=== PATIENT | male | born 1980 | race Hispanic/Latino ===

== ENCOUNTER 2018-12-27 10:31 | Inpatient (IN) | payer SELFPAY ==
[~2018-12-27] VITALS: Ht 177.8 cm; Wt 95.1 kg
[2018-12-27 11:46] LABS: BASOPHILS % (AUTO) 0.9 % (0.0-5.0); EOSINOPHILS % (AUTO) 1.8 % (0.0-8.0); HEMATOCRIT 39.1 % (42-54); LYMPHOCYTES % (AUTO) 17.2 % (21.0-51.0); MEAN CORPUSCULAR HEMOGLOBIN 29.4 pg (27.0-33.0); MEAN CORPUSCULAR HGB CONC 33.2 g/dL (32.0-36.0); MEAN CORPUSCULAR VOLUME 88.6 fL (79-99); MONOCYTES % (AUTO) 7.8 % (3.0-13.0); NEUTROPHILS % (AUTO) 72.3 % (40.0-77.0); PLATELET COUNT (AUTO) 218 K/uL (130-400); RED BLOOD CELL COUNT(AUTO) 4.41 MIL/uL (4.50-6.20); RED CELL DISTRIBUTION WIDTH 12.8 % (11.0-15.5); WHITE BLOOD COUNT (AUTO) 10.6 K/uL (4.8-10.8)
[2018-12-27 11:56] LABS: CARBON DIOXIDE 26 mmol/L (21-32); CHLORIDE 108 mmol/L (101-111); GLOMERULAR FILTR. RATE CALC 88 mL/min (>60); GLUCOSE,RANDOM 133 mg/dL (70-105); POTASSIUM 3.8 mmol/L (3.5-5.1); SODIUM SERUM 144 mmol/L (136-145); UREA NITROGEN, BLOOD 19 mg/dL (7-18)
[2018-12-27 11:57] LABS: INR 0.91 (0.85-1.15); PARTIAL THROMBOPLASTIN TIME 27.9 SEC (26.3-35.5); PROTHROMBIN TIME 9.6 SEC (9.6-11.6)
[2018-12-27] MEDS ORDERED: SODIUM CHLORIDE 0.9% 1000ML 1,000 ML IV ONE (12:00)
[2018-12-27] MEDS ORDERED: ZOSYN 3.375GM+NS 50ML 50 ML IV ONE ×2 (12:01→22:55)
[2018-12-27] MEDS ORDERED: VANCOMYCIN 1GM+NS 250ML 250 ML IV ONE ×2 (12:01→22:00)
[2018-12-27 12:07] LABS: ALANINE AMINOTRANSFERASE 49 U/L (12-78); ALBUMIN 3.3 g/dL (3.5-5.0); ASPARTATE AMINOTRANSFERASE 26 U/L (10-37); BILIRUBIN,TOTAL 0.3 mg/dL (0.2-1.0); CREATINE KINASE, TOTAL 153 U/L (21-232); MYOGLOBIN 70 ng/mL (10-92); TOTAL PROTEIN, SERUM 7.9 g/dL (6.0-8.3); TROPONIN I < 0.04 ng/mL (0.00-0.06)
[2018-12-27] MEDS ORDERED: ONDANSETRON HCL 4 MG/2 ML VIAL IV PRN (14:30)
[2018-12-27] MEDS ORDERED: ACETAMINOPHEN 325 MG TAB PO PRN (14:30)
[2018-12-27] MEDS ORDERED: VANCOMYCIN PROTOCOL PER PHARMACY IV PRN (14:30)
[2018-12-27] MEDS ORDERED: MORPHINE SULFATE 2 MG/ML 1ML SYG IV PRN (14:30)
[2018-12-27] MEDS: SODIUM CHLORIDE 0.9% 1000ML 1,000 ML IV SCH (14:30)
[2018-12-27 14:51] LABS: HEMOGLOBIN A1C 10.7 % (4.0-6.0)
[2018-12-27 16:10] LABS: APPEARANCE,URINE Clear (CLEAR); BILIRUBIN,URINE Negative (NEGATIVE); COLOR,URINE Yellow (YELLOW); GLUCOSE, URINE (UA) >=1000 mg/dL (NEGATIVE); KETONES,URINE Negative (NEGATIVE); LEUKOCYTE ESTERASE ,URINE Negative (NEGATIVE); NITRATE,URINE Negative (NEGATIVE); OCCULT BLOOD,URINE Trace (NEGATIVE); PROTEIN,URINE POS 2+ (NEGATIVE)
[2018-12-27 16:33] LABS: BACTERIA,URINE Few /HPF (None Seen); WBC,URINE 0-1 /HPF (0-1)
[2018-12-27 16:34] LABS: SQUAMOUS EPITHELIAL CELL,UR Rare /HPF (0-2)
[2018-12-27] MEDS: PHARMACY COMMUNICATION MISC SCH (20:15)
[2018-12-27] MEDS: INSULIN HUMULIN R 100 UNIT/ML 3ML SQ SCH (21:00)
[2018-12-27] MEDS: ZOSYN 3.375GM+NS 50ML 50 ML IV SCH (21:00)
[2018-12-27] MEDS ORDERED: INSULIN HUMULIN R 100 UNIT/ML 3ML ONE (21:26)
[2018-12-27] MEDS ORDERED: MORPHINE SULFATE 2 MG/ML 1ML SYG ONE (22:55)
[2018-12-27] MEDS ORDERED: ONDANSETRON HCL 4 MG/2 ML VIAL ONE (22:55)
[2018-12-27] MEDS ORDERED: SODIUM CHLORIDE 0.9% 100 ML IV ONE (22:55)
[2018-12-27 23:36] VITALS: BP 152/94
[2018-12-28] MEDS: PHARMACY COMMUNICATION MISC SCH ×7 (00:15→23:28)
[2018-12-28] MEDS: SODIUM CHLORIDE 0.9% 1000ML 1,000 ML IV SCH (00:30)
[2018-12-28] MEDS ORDERED: VANCOMYCIN 1GM+NS 250ML 250 ML IV ONE (02:36)
[2018-12-28 03:28] VITALS: BP 129/70
[2018-12-28 04:49] LABS: BASOPHILS % (AUTO) 0.8 % (0.0-5.0); EOSINOPHILS % (AUTO) 2.6 % (0.0-8.0); HEMATOCRIT 34.8 % (42-54); LYMPHOCYTES % (AUTO) 31.2 % (21.0-51.0); MEAN CORPUSCULAR HEMOGLOBIN 30.2 pg (27.0-33.0); MEAN CORPUSCULAR HGB CONC 33.8 g/dL (32.0-36.0); MEAN CORPUSCULAR VOLUME 89.3 fL (79-99); MONOCYTES % (AUTO) 8.3 % (3.0-13.0); NEUTROPHILS % (AUTO) 57.1 % (40.0-77.0); NUCLEATED RED BLOOD CELLS 0.1 % (0.0-0.19); PLATELET COUNT (AUTO) 184 K/uL (130-400); RED BLOOD CELL COUNT(AUTO) 3.89 MIL/uL (4.50-6.20); RED CELL DISTRIBUTION WIDTH 13.3 % (11.0-15.5); WHITE BLOOD COUNT (AUTO) 7.1 K/uL (4.8-10.8)
[2018-12-28 04:53] LABS: POTASSIUM 3.8 mmol/L (3.5-5.1)
[2018-12-28] MEDS: VANCOMYCIN 1GM+NS 250ML 250 ML IV SCH ×3 (05:13→20:20)
[2018-12-28] MEDS: ZOSYN 3.375GM+NS 50ML 50 ML IV SCH ×3 (06:20→20:20)
[2018-12-28 07:30] VITALS: BP 139/83
[2018-12-28] MEDS: INSULIN HUMULIN R 100 UNIT/ML 3ML SQ SCH ×4 (08:51→21:03)
[2018-12-28] MEDS: PANTOPRAZOLE SODIUM 40 MG TABLET.DR PO SCH (10:10)
[2018-12-28] MEDS: ENOXAPARIN SODIUM 40 MG/0.4 ML SYRINGE SQ SCH (10:11)
[2018-12-28 11:00] VITALS: BP 146/84
[2018-12-28 16:00] VITALS: BP 163/92
[2018-12-28 19:20] VITALS: BP 140/82
[2018-12-28 23:12] VITALS: BP 138/81
[2018-12-29 03:40] VITALS: BP 131/68
[2018-12-29] MEDS: VANCOMYCIN 1GM+NS 250ML 250 ML IV SCH ×3 (04:10→20:14)
[2018-12-29] MEDS: ZOSYN 3.375GM+NS 50ML 50 ML IV SCH ×3 (04:10→20:15)
[2018-12-29] MEDS: PHARMACY COMMUNICATION MISC SCH ×6 (04:15→23:22)
[2018-12-29 04:29] LABS: HEMATOCRIT 35.1 % (42-54); MEAN CORPUSCULAR HEMOGLOBIN 29.9 pg (27.0-33.0); MEAN CORPUSCULAR HGB CONC 33.3 g/dL (32.0-36.0); MEAN CORPUSCULAR VOLUME 89.9 fL (79-99); PLATELET COUNT (AUTO) 198 K/uL (130-400); RED BLOOD CELL COUNT(AUTO) 3.91 MIL/uL (4.50-6.20); RED CELL DISTRIBUTION WIDTH 13.5 % (11.0-15.5); WHITE BLOOD COUNT (AUTO) 7.1 K/uL (4.8-10.8)
[2018-12-29 04:33] LABS: CREATININE 1.1 mg/dL (0.5-1.5); POTASSIUM 3.7 mmol/L (3.5-5.1)
[2018-12-29] MEDS: INSULIN HUMULIN R 100 UNIT/ML 3ML SQ SCH ×4 (06:25→20:42)
[2018-12-29 08:00] VITALS: BP 138/68
[2018-12-29] MEDS: PANTOPRAZOLE SODIUM 40 MG TABLET.DR PO SCH (09:08)
[2018-12-29] MEDS: ENOXAPARIN SODIUM 40 MG/0.4 ML SYRINGE SQ SCH (09:08)
[2018-12-29 12:00] VITALS: BP 158/94
[2018-12-29] MEDS ORDERED: METOPROLOL TARTRATE 25 MG TAB PO SCH (13:00)
[2018-12-29 16:00] VITALS: BP 141/84
[2018-12-29 19:20] VITALS: BP 158/94
[2018-12-29] MEDS ORDERED: INSULIN GLARGINE 100 UNITS/ML 10 ML VIAL SQ SCH (21:00)
[2018-12-29 23:10] VITALS: BP 159/93
[2018-12-30] MEDS: PHARMACY COMMUNICATION MISC SCH (03:23)
[2018-12-30 03:30] VITALS: BP 153/90
[2018-12-30] MEDS: VANCOMYCIN 1GM+NS 250ML 250 ML IV SCH ×3 (04:37→20:08)
[2018-12-30] MEDS: ZOSYN 3.375GM+NS 50ML 50 ML IV SCH ×3 (04:37→23:00)
[2018-12-30] MEDS: INSULIN HUMULIN R 100 UNIT/ML 3ML SQ SCH ×3 (06:39→23:02)
[2018-12-30 06:57] LABS: HEMATOCRIT 35.3 % (42-54); MEAN CORPUSCULAR HEMOGLOBIN 30.1 pg (27.0-33.0); MEAN CORPUSCULAR HGB CONC 33.5 g/dL (32.0-36.0); MEAN CORPUSCULAR VOLUME 89.8 fL (79-99); PLATELET COUNT (AUTO) 227 K/uL (130-400); RED BLOOD CELL COUNT(AUTO) 3.93 MIL/uL (4.50-6.20); RED CELL DISTRIBUTION WIDTH 13.2 % (11.0-15.5); WHITE BLOOD COUNT (AUTO) 8.1 K/uL (4.8-10.8)
[2018-12-30 07:17] LABS: POTASSIUM 3.6 mmol/L (3.5-5.1)
[2018-12-30 08:00] VITALS: BP 155/86
[2018-12-30] MEDS: PANTOPRAZOLE SODIUM 40 MG TABLET.DR PO SCH (09:29)
[2018-12-30] MEDS: ENOXAPARIN SODIUM 40 MG/0.4 ML SYRINGE SQ SCH (09:30)
[2018-12-30] MEDS ORDERED: INSULIN GLARGINE 100 UNITS/ML 10 ML VIAL SQ SCH ×2 (10:15→10:21)
[2018-12-30] MEDS: METOPROLOL TARTRATE 25 MG TAB PO SCH ×2 (10:21→20:09)
[2018-12-30 12:00] VITALS: BP 137/85
[2018-12-30 12:29] LABS: HEMOGLOBIN A1C 10.4 % (4.0-6.0)
[2018-12-30 16:00] VITALS: BP 155/93
[2018-12-30 20:05] VITALS: BP 160/91
[2018-12-30] MEDS: INSULIN GLARGINE 100 UNITS/ML 10 ML VIAL SQ SCH (23:03)
[2018-12-30 23:55] VITALS: BP 127/66
[2018-12-31] MEDS: VANCOMYCIN 1GM+NS 250ML 250 ML IV SCH ×2 (03:28→11:37)
[2018-12-31 04:30] VITALS: BP 139/81
[2018-12-31 05:48] LABS: HEMATOCRIT 35.2 % (42-54); MEAN CORPUSCULAR HEMOGLOBIN 29.7 pg (27.0-33.0); MEAN CORPUSCULAR HGB CONC 33.5 g/dL (32.0-36.0); MEAN CORPUSCULAR VOLUME 88.6 fL (79-99); PLATELET COUNT (AUTO) 215 K/uL (130-400); RED BLOOD CELL COUNT(AUTO) 3.97 MIL/uL (4.50-6.20); WHITE BLOOD COUNT (AUTO) 8.1 K/uL (4.8-10.8)
[2018-12-31 05:54] LABS: POTASSIUM 3.5 mmol/L (3.5-5.1)
[2018-12-31] MEDS: ZOSYN 3.375GM+NS 50ML 50 ML IV SCH ×2 (06:33→13:27)
[2018-12-31] MEDS: INSULIN HUMULIN R 100 UNIT/ML 3ML SQ SCH ×2 (06:33→11:38)
[2018-12-31] MEDS: INSULIN GLARGINE 100 UNITS/ML 10 ML VIAL SQ SCH (06:35)
[2018-12-31 07:48] VITALS: BP 162/81
[2018-12-31] MEDS: PANTOPRAZOLE SODIUM 40 MG TABLET.DR PO SCH (09:16)
[2018-12-31] MEDS: METOPROLOL TARTRATE 25 MG TAB PO SCH (09:17)
[2018-12-31] MEDS: ENOXAPARIN SODIUM 40 MG/0.4 ML SYRINGE SQ SCH (09:23)
[2018-12-31 11:10] VITALS: BP 166/83
[2018-12-31] MEDS ORDERED: METO25 PO (14:58)
[2018-12-31] MEDS ORDERED: INSLAN SQ (14:58)
== END 2018-12-31 16:18 | disposition home or self-care (01) | DRG 623 ==
LOC: EDH 10:31 → EDHIP 10:32 → OBSVTOIN 10:32 → 4BH 22:45
PROVIDERS: ADMIT Internal Medicine; ATTEND Internal Medicine
PROC: 0JBQ0ZZ Excision of Right Foot Subcutaneous Tissue and Fascia, Open Approach (ICD-10-PCS; principal; 2018-12-29)
DX: E11.621 Type 2 diabetes mellitus with foot ulcer (principal); L03.115 Cellulitis of right lower limb; M86.8X7 Other osteomyelitis, ankle and foot; L03.031 Cellulitis of right toe; E11.40 Type 2 diabetes mellitus with diabetic neuropathy, unspecified; L97.519 Non-pressure chronic ulcer of other part of right foot with unspecified severity; E66.9 Obesity, unspecified; E11.69 Type 2 diabetes mellitus with other specified complication; I10 Essential (primary) hypertension; L84 Corns and callosities; B95.5 Unspecified streptococcus as the cause of diseases classified elsewhere; B95.4 Other streptococcus as the cause of diseases classified elsewhere; Z68.30 Body mass index [BMI] 30.0-30.9, adult; Z79.4 Long term (current) use of insulin
CPT/HCPCS: 36415; 71045; 73630; 73718; 80048; 80053; 80202; 81001; 82550; 82948; 83036; 83605; 83874; 84484; 85025; 85027; 85610; 85651; 85730; 86140; 87040; 87070; 87076; 87088; 93005; 93925; 99291; G0378; J1650; J1815; J2405; J2543; J3370; J7030

== ENCOUNTER 2019-03-07 19:01 | Emergency (ER) | payer OTHER ==
[~2019-03-07 19:01] MED LIST: INSLAN SQ; METO25 PO
== END 2019-03-07 19:56 | disposition home or self-care (01) ==
LOC: EDH 19:01
DX: L03.115 Cellulitis of right lower limb (principal); E11.9 Type 2 diabetes mellitus without complications; I10 Essential (primary) hypertension; Z79.4 Long term (current) use of insulin; Z72.0 Tobacco use

== ENCOUNTER 2019-07-09 20:34 | Emergency (ER) | payer OTHER | END 2019-07-09 21:22 | disposition home or self-care (01) | LOC: EDH 20:34 | DX: S43.401A Unspecified sprain of right shoulder joint, initial encounter (principal); I10 Essential (primary) hypertension; E11.9 Type 2 diabetes mellitus without complications; Z79.4 Long term (current) use of insulin; X50.9XXA Other and unspecified overexertion or strenuous movements or postures, initial encounter; Y93.89 Activity, other specified; Y92.89 Other specified places as the place of occurrence of the external cause; Y99.0 Civilian activity done for income or pay | CPT/HCPCS: 73030 ==

== ENCOUNTER 2019-12-31 19:15 | Emergency (ER) | payer OTHER ==
[2019-12-31] MEDS ORDERED: SODIUM CHLORIDE 0.9% 1000ML 1,000 ML IV ONE (19:42)
[2019-12-31 20:04] LABS: BASOPHILS % (AUTO) 0.8 % (0.0-5.0); EOSINOPHILS % (AUTO) 2.3 % (0.0-8.0); HEMATOCRIT 37.4 % (42-54); MEAN CORPUSCULAR HEMOGLOBIN 28.8 pg (27.0-33.0); MEAN CORPUSCULAR HGB CONC 33.2 g/dL (32.0-36.0); MEAN CORPUSCULAR VOLUME 86.8 fL (79-99); MONOCYTES % (AUTO) 11.2 % (3.0-13.0); NEUTROPHILS % (AUTO) 77.3 % (40.0-77.0); PLATELET COUNT (AUTO) 185 K/uL (130-400); RED BLOOD CELL COUNT(AUTO) 4.31 MIL/uL (4.50-6.20); RED CELL DISTRIBUTION WIDTH 12.5 % (11.0-15.5); WHITE BLOOD COUNT (AUTO) 7.8 K/uL (4.8-10.8)
[2019-12-31 20:15] LABS: CREATININE 1.5 mg/dL (0.5-1.5); POTASSIUM 3.9 mmol/L (3.5-5.1)
[2019-12-31 20:19] LABS: ALBUMIN 3.7 g/dL (3.5-5.0); BILIRUBIN,TOTAL 0.3 mg/dL (0.2-1.0); TOTAL PROTEIN, SERUM 7.9 g/dL (6.0-8.3)
[2019-12-31 20:23] LABS: RAPID GROUP A STREP NEGATIVE (NEGATIVE)
== END 2019-12-31 21:14 | disposition home or self-care (01) ==
LOC: EDH 19:15
DX: J20.9 Acute bronchitis, unspecified (principal); J11.1 Influenza due to unidentified influenza virus with other respiratory manifestations; E11.9 Type 2 diabetes mellitus without complications; I10 Essential (primary) hypertension; Z79.899 Other long term (current) drug therapy
CPT/HCPCS: 36415; 71046; 80053; 85025; 87804 ×2; 87880; 99284; J7030

== ENCOUNTER 2020-01-16 10:31 | Emergency (ER) | payer OTHER ==
[2020-01-16] MEDS ORDERED: CYCLOBENZAPRINE HCL 10 MG TABLET ONE (11:18)
[2020-01-16] MEDS ORDERED: KETOROLAC TROMETHAMINE 60 MG/2 ML VIAL ONE (11:18)
== END 2020-01-16 12:15 | disposition home or self-care (01) ==
LOC: EDH 10:31
DX: M54.32 Sciatica, left side (principal); I10 Essential (primary) hypertension; E11.9 Type 2 diabetes mellitus without complications; Z79.4 Long term (current) use of insulin; Z72.0 Tobacco use
CPT/HCPCS: 87804 ×2; 93971; 96372; 99284; J1885

== ENCOUNTER 2023-10-12 00:56 | Emergency (ER) | payer BC ==
[~2023-10-12] VITALS: Ht 175.3 cm; Wt 97.1 kg
[2023-10-12 01:16] LABS: BASOPHILS % (AUTO) 1.1 % (0.0-5.0); EOSINOPHILS # (AUTO) 0.31 K/uL (0.00-0.70); EOSINOPHILS % (AUTO) 3.5 % (0.0-8.0); HEMATOCRIT 39.5 % (42-54); IMMATURE GRANULOCYTE ABSOLUTE 0.02 K/uL (0-1); LYMPHOCYTES # (AUTO) 2.6 K/uL (1.0-4.8); LYMPHOCYTES % (AUTO) 29.2 % (21.0-51.0); MEAN CORPUSCULAR HEMOGLOBIN 30.1 pg (27.0-33.0); MEAN CORPUSCULAR HGB CONC 33.9 g/dL (32.0-36.0); MEAN CORPUSCULAR VOLUME 88.8 fL (79-99); MONOCYTES # (AUTO) 0.7 K/uL (0.1-1.0); MONOCYTES % (AUTO) 7.5 % (3.0-13.0); NEUTROPHILS # (AUTO) 5.2 K/uL (1.8-7.7); NEUTROPHILS % (AUTO) 58.5 % (40.0-77.0); PLATELET COUNT (AUTO) 221 K/uL (130-400); RED BLOOD CELL COUNT(AUTO) 4.45 MIL/uL (4.50-6.20); RED CELL DISTRIBUTION WIDTH 12.7 % (11.0-15.5); WHITE BLOOD COUNT (AUTO) 8.8 K/uL (4.8-10.8)
[2023-10-12] MEDS ORDERED: DICYCLOMINE 20MG (10MG/ML) AMP IM STA (01:25)
[2023-10-12 01:27] LABS: CREATININE 1.4 mg/dL (0.5-1.5); POTASSIUM 3.8 mmol/L (3.5-5.1)
[2023-10-12] MEDS ORDERED: ASPIRIN 81MG CHEW TAB PO ONE (01:30)
[2023-10-12] MEDS ORDERED: METOPROLOL TARTRATE 1 MG/ML 5ML VIAL IV ONE ×2 (01:30→04:00)
[2023-10-12 01:34] LABS: ALBUMIN 2.8 g/dL (3.5-5.0); BILIRUBIN,TOTAL 0.2 mg/dL (0.2-1.0); INR < 0.93 (0.85-1.15); PROTHROMBIN TIME 9.9 SEC (9.6-11.6); TOTAL PROTEIN, SERUM 7.1 g/dL (6.0-8.3)
[2023-10-12 01:35] LABS: PARTIAL THROMBOPLASTIN TIME 26.4 SEC (26.3-35.5)
[2023-10-12 01:43] LABS: B-TYPE NATRIURETIC PEPTIDE 10 pg/mL (0-100)
[2023-10-12 01:55] LABS: APPEARANCE,URINE CLEAR (CLEAR); BILIRUBIN,URINE NEGATIVE (NEGATIVE); COLOR,URINE COLORLESS (YELLOW); GLUCOSE, URINE (UA) >=1000 mg/dL (NEGATIVE); KETONES,URINE NEGATIVE (NEGATIVE); LEUKOCYTE ESTERASE ,URINE NEGATIVE Leu/uL (NEGATIVE); NITRATE,URINE NEGATIVE (NEGATIVE); OCCULT BLOOD,URINE MODERATE (NEGATIVE); PH,URINE 6.5 (5.0-8.0); PROTEIN,URINE 100 mg/dL (NEGATIVE); UROBILINOGEN,URINE 0.2 mg/dL (0.2-1.0)
[2023-10-12 01:57] LABS: ADD UA MICROSCOPIC YES
[2023-10-12 01:58] LABS: WBC,URINE 0-1 /HPF (0-1)
[2023-10-12 01:59] LABS: AMPHET/METH SCREEN,URINE NEGATIVE (NEGATIVE); BARBITURATE SCREEN, URINE NEGATIVE (NEGATIVE); BENZODIAZEPINES SCREEN,URINE NEGATIVE (NEGATIVE); CANNABINOID SCREEN,URINE NEGATIVE (NEGATIVE); COCAINE SCREEN,URINE NEGATIVE (NEGATIVE); OPIATE SCREEN,URINE NEGATIVE (NEGATIVE); PHENCYCLIDINE SCREEN,URINE NEGATIVE (NEGATIVE)
[2023-10-12 03:32] VITALS: PULSE 75; RESP 19; O2SAT 98
[2023-10-12] MEDS ORDERED: AMLO5TAB4 PO (03:54)
[2023-10-12] MEDS ORDERED: IBUP-1493 PO (03:54)
[2023-10-12] MEDS ORDERED: CYCL-309 PO (03:54)
[2023-10-12 04:10] VITALS: BP 169/91
== END 2023-10-12 04:16 | disposition home or self-care (01) ==
LOC: EDH 00:56
DX: I10 Essential (primary) hypertension (principal); R07.89 Other chest pain; E11.9 Type 2 diabetes mellitus without complications; F17.200 Nicotine dependence, unspecified, uncomplicated; Z79.4 Long term (current) use of insulin
CPT/HCPCS: 99284; 96374; 71045; 84484 ×2; 80053; 83880; 80305; 85025; 85610; 85730; 81001; 36415; 96372; 96376; 93005; J3490 ×2; J0500

== ENCOUNTER 2025-02-11 19:10 | Emergency (ER) | payer BC ==
[~2025-02-11] VITALS: Ht 177.8 cm; Wt 94.3 kg
[~2025-02-11 19:10] MED LIST changes: +AMLO5TAB4 PO; +CYCL-309 PO; +IBUP-1493 PO
[2025-02-11] MEDS: ketOROlac 60 MG VIAL (30MG/ML) IM ONE (19:53)
--- NOTE | 2025-02-11 20:01 | ERN ---
ED Note History of Present Illness Stated Complaint: SWOLLEN KNEE Chief Complaint: Knee Injury/Swelling Time Seen by MD: 19:13 Time Seen by Midlevel: 19:13 Dictation: The patient is a 44-year-old male presents to the emergency department with complaints of right knee pain after a fall three weeks ago. Denies any other injuries. Allergies: Coded Allergies: No Known Allergies (Verified Allergy, Unknown, 12/27/18) No Known Drug Allergies (Unverified Allergy, Unknown, 07/09/19) Home Meds Active Scripts Amlodipine Besylate (Norvasc 5Mg Tab) 5 Mg Tablet, 5 MG PO DAILY, #30 TAB Prov:OLGA GRAY MD 10/12/23 Cyclobenzaprine HCl (Cyclobenzaprine HCl) 10 Mg Tablet, 10 MG PO TIDP PRN for PAIN, #30 TAB Prov:OLGA GRAY MD 10/12/23 Ibuprofen (Motrin/Advil) 800 Mg Tab, 800 MG PO TID, #30 TAB Prov:OLGA GRAY MD 10/12/23 Insulin Glargine,Hum.rec.anlog (Lantus) 100 Units/Ml Inj, 10 UNITS SQ BID@0730,2100 for 30 Days, ML Prov:SHANEKA CORCORAN NP 12/31/18 Metoprolol Tartrate (Lopressor) 25 Mg Tab, 25 MG PO BID for 15 Days, TAB Prov:SHANEKA CORCORAN P[employer]AL[employer]ANCE AUDITOR 12/31/18 Past Medical History Past Medical History: Diabetes-Type II, Hypertension Surgical History: None Family History: DM, HTN, Negative Social History: Smokers, ETOH, Lives with family RN Note Reviewed/Agreed w/PFSH: Yes Review of System Dictation Constitutional: Negative for fever,chills, and weight loss Eyes: Negative for injury, pain,redness, and discharge ENT: Negative for injury,pain or swelling Cardiovascular: Negative for chest pain, palpitations, and edema Respiratory: Negative for shortness of breath, cough, and wheezing, Abdomen/GI: Negative for abdominal pain, nausea, vomiting, diarrhea, and constipation Back: Negative for injury and pain : Negative for injury, bleeding and discharge MS/Extremity: Positive for right knee pain Skin: Negative for rash, and discoloration Neuro: Negative for headache, weakness, numbness, tingling, and seizure Psych: Negative for suicide ideation, homicidal ideation, and hallucinations Initial Vital Sign VS Vital Signs Date Time Temp Pulse Resp B/P (MAP) Pulse Ox O2 Delivery O2 Flow Rate FiO2 02/11/25 19:37 97.7 75 20 138/72 96 Room Air 02/11/25 20:06 0 21 Physical Exam Dictation Vital Signs reviewed General Appearance: Alert, oriented x 3, no acute distress, well developed, nourished. Head and Face: non-traumatic. Eyes: PERRL, pink conjunctivas, eyelid no trauma, anterior chamber with arcus senilis. Ears: Pinnas intact and no signs of trauma or erythema ear canals clear and no discharge TM no erythema Nose: No discharge, no bleeding. Oropharynx: Mouth normal, tongue pink. pharynx clear,no erythema, tonsils no exudates, no abscesses noted, mucous membrane moist Neck: Supple, non-tender, no thyromegaly, no masses, no JVD, no bruits Breast:Deferred Chest:No tenderness, no crepitus, no paradoxical movement, no retractions Lungs:Clear, well-ventilated, symmetric, no rales, no wheezing, no rhonchi, no stridor, good breath sounds bilaterally Heart: Regular rate, regular rhythm, no murmur, no gallops Vascular: no peripheral edema, dorsalis pedis 3+ bilaterally Abdomen: Soft, positive bowel sounds, nondistended, no guarding, nontender, no rebound, no masses no hepatomegaly, no splenomegaly, no Tobin's sign, no hernias. Rectal: Deferred Genital: Deferred Neurological: Normal speech, motor function intact, sensory function intact Musculoskeletal: Neck nontender, full range of motion, back nontender, full range of motion, Extremities: nontender, full range of motion , no swelling to right knee, no open wounds. Full range of motion although some tenderness to palpation. Skin: Color pink, dry, no turgor, no rash, no lacerations, no abrasions, no contusions. Lymphatic: Deferred Results (Laboratory/Radiology) Labs Reviewed?: Yes ED Course ED Course Orders Procedure Category Date Status Time Knee 3vws Rt RAD 02/11/25 Taken 19:30 Ketorolac 60mg/2ml PHA 02/11/25 Complete (Toradol 60mg/2ml) 19:30 Current Medications Medications (Trade) Dose Ordered Sig/Manuel Route PRN Reason Start Time Stop Time Status Last Admin Dose Admin Ketorolac Tromethamine (toRADol 60MG/ 2ML) 60 mg ONCE ONCE IM 02/11/25 19:30 02/11/25 19:34 DC 02/11/25 19:53 Vital Signs Date Time Temp Pulse Resp B/P (MAP) Pulse Ox O2 Delivery O2 Flow Rate FiO2 02/11/25 20:06 98.1 75 16 138/72 98 Room Air* 0 21 02/11/25 19:37 97.7 75 20 138/72 96 Room Air Medical Decision Making MDM The patient is a 44-year-old male presents to the emergency department with complaints of right knee pain after a fall three weeks ago. Denies any other injuries. X-ray showed no acute fractures or dislocations. Patient in no acute distress. Neurovascular intact.. Will be placed on a knee immobilizer and instructed to follow up with the orthopedic. Differential diagnosis: Knee sprain, knee dislocation, femur fracture Need for hospitalization: Patient does not meet criteria for hospitalization. There are no social concerns with this patient. DX & DISP Disposition: Discharge Departure Impression: Primary Impression: Right knee sprain Condition: Stable Additional Instructions: Please follow up with your PCP in 1-2 days. If symptoms worsen please return to ER. FOLLOW-UP WITH PRIMARY CARE PROVIDER IN 1 TO 2 DAYS. TAKE MEDICATIONS DIRECTED HERE IN THE EMERGENCY ROOM. OKAY TO CONTINUE HOME MEDICATIONS UNLESS OTHERWISE DISCUSSED DURING YOUR VISIT IN THE EMERGENCY ROOM TODAY. RETURN TO YOUR NEAREST EMERGENCY ROOM IF SYMPTOMS WORSEN OR IF THERE IS NO IMPROVEMENT. CALL 911 IF YOU NEED IMMEDIATE ASSISTANCE. TAKE TYLENOL OR MOTRIN [id number] NEEDED AND IF NO CONTRAINDICATIONS ARE PRESENT. INCREASE ORAL HYDRATION. A WOUND CULTURE OR URINE CULTURE WAS ORDERED HERE IN THE [facility] PLEASE FOLLOW-UP WITH PRIMARY CARE PROVIDER AND ADVISE THEM TO GET REPEAT PORTS FROM OUR FACILITY. IF YOU HAD ANY PANCHO WRAP/SPLINTS THAT WERE APPLIED HERE, PLEASE DO NOT REMOVE THEM UNTIL YOU SEE YOUR PRIMARY CARE OR SPECIALTY. Referrals: BRET LONDON MD (PCP) RIKC TORRES MD Time of Disposition: 20:41 I have reviewed the case, and I agree with, Diagnosis and Plan AKIN B[facility]K [facility] Feb 11, 2025 20:01
--- NOTE | 2025-02-11 20:57 | HMCIMG ---
KNEE 3VWS RT INDICATION: pain, fall TECHNIQUE: KNEE 3VWS RT. FINDINGS AND IMPRESSION: No displaced fracture or dislocation is seen. Correlate clinically. There is mild soft tissue swelling No radiopaque foreign body is identified.
[2025-02-11 21:00] VITALS: BP 131/67; PULSE 70; RESP 16; TEMP 98.1; O2SAT 96
== END 2025-02-11 21:00 | disposition home or self-care (01) ==
LOC: EDH 19:10
DX: S83.91XA Sprain of unspecified site of right knee, initial encounter (principal); E11.9 Type 2 diabetes mellitus without complications; I10 Essential (primary) hypertension; F17.200 Nicotine dependence, unspecified, uncomplicated; Z79.1 Long term (current) use of non-steroidal anti-inflammatories (NSAID); Z79.4 Long term (current) use of insulin; Z79.899 Other long term (current) drug therapy; W18.39XA Other fall on same level, initial encounter; Y93.89 Activity, other specified; Y92.89 Other specified places as the place of occurrence of the external cause; Y99.8 Other external cause status
CPT/HCPCS: 99284; 29505; 73562; 96372; J1885